=== PATIENT | female | born 1985 | race Two or more races ===

== ENCOUNTER 2019-03-10 08:45 | Emergency (ER) | payer MEDICAID ==
[2019-03-10 08:50] VITALS: BP 108/81
== END 2019-03-10 09:54 | disposition home or self-care (01) ==
LOC: EEVIPCON 08:45 → ER 08:45
DX: K04.7 Periapical abscess without sinus (principal); F17.210 Nicotine dependence, cigarettes, uncomplicated; F12.10 Cannabis abuse, uncomplicated